=== PATIENT | female | born 1990 | race Hispanic/Latino ===

== ENCOUNTER 2018-01-23 07:40 | Outpatient (CLI) | payer BC ==
--- NOTE | 2018-01-23 09:09 | ULT ---
TRANSABDOMINAL AND TRANSVAGINAL PELVIC ULTRASOUND: INDICATIONS: Abnormal menses. COMPARISON: None. TECHNIQUE: Adams-scale, color Doppler, and spectral Doppler images were obtained of the pelvis, via a transabdomi nal/transvaginal approach. FINDINGS: The uterus measured 6.5 x 3.9 x 3 cm, giving an estimated total uterine volume of 40.5 mL. The endom etrial stripe measured 1.6 mm. The right ovary measured 2.4 x 2.4 x 2.2 cm. The left ovary measured 3.5 x 2.7 x 2.7 cm. There is n ormal flow to the right and left ovaries. Normal appearing follicles are present within both ovaries . No free fluid is identified. IMPRESSION: No acute sonographic abnormality demonstrated. POS: [facility]
== END 2018-01-23 07:41 | disposition home or self-care (01) ==
LOC: BICULT 07:40
PROVIDERS: ATTEND Family Medicine
DX: N93.9 Abnormal uterine and vaginal bleeding, unspecified (principal)
CPT/HCPCS: 76856